=== PATIENT | male | born 1960 | race Caucasian/White ===

== ENCOUNTER 2025-03-13 09:28 | Emergency (ER) | payer MEDICAID ==
[~2025-03-13] VITALS: Ht 167.6 cm; Wt 116.2 kg
[2025-03-13] MEDS ORDERED: iohexol 350MG/ML 100ml bottle IV ONE (09:42)
--- NOTE | 2025-03-13 10:04 | ELECTROCARDIOGRAPH REPORT ---
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 Per Romano Measurements Intervals Leona Rate: 80 P: 44 GA: 199 QRS: 108 QRSD: 100 T: 37 QT: 360 QTc: 416 Interpretive Statements Sinus rhythm Right axis deviation Minimal ST elevation, lateral leads Electronically Signed On 03-13-2025 20:38:[address] Per Romano Please click the below link to view image of tracing.
--- NOTE | 2025-03-13 10:09 | RADIOLOGY REPORT ---
EXAM: CT CT STROKE ALERT INDICATION: Stroke Alert TECHNIQUE: CT of the head without intravenous contrast. Radiation Dose : 1. Head: CT Dose: CTDI volume is 65 mGy. Dose-length product is 12 70 mGy*cm The dose indicators for CT are the volume Computed Tomography (CT) Dose Index (CTDIvol) and the Dose Length Product (DLP), and are measured in units of mGy and mGy-cm, respectively. These indicators are not patient dose, but values generated from the CT scanner acquisition factors. The report includes radiation exposure data for exposures received during this examination. COMPARISON: None FINDINGS: There is no evidence of acute intracranial hemorrhage, extra-axial collection, mass effect, midline s hift, herniation or hydrocephalus. Punctate calcification in the right frontal lobe may represent a granuloma or sequelae of prior infec tion. The ventricles, sulci and cisterns are age appropriate. The lee-white differentiation is intact. Patchy periventricular and subcortical white matter hypoattenuation is nonspecific but may be related to small vessel ischemic disease. The visualized paranasal sinuses and mastoid air cells are clear. Moderate opacification of the right mastoid air cells. Mild opacification of the left mastoid air cells. IMPRESSION: No acute intracranial abnormality. Moderate opacification of the right mastoid air cells. Radiation optimization: All CT scans at this facility use at least one of these dose optimization mckinley hniques: automated exposure control mA and/or kV adjustment per patient size (includes targeted exam s where dose is matched to clinical indication) or iterative reconstruction.
[2025-03-13 10:17] LABS: EOSINOPHILS # (AUTO) 0.2 X10'3 (0-0.9); HEMOGLOBIN 13.9 g/dl (14.0-17.9)
[2025-03-13 10:19] LABS: BASOPHILS # (AUTO) 0.1 X10'3 (0-0.2); BASOPHILS % (AUTO) 1.7 % (0-1); EOSINOPHILS % (AUTO) 4.7 % (0-6); LYMPHOCYTES # (AUTO) 1.6 X10'3 (1.1-4.8); LYMPHOCYTES % (AUTO) 31.6 % (21-51); MEAN CORPUSCULAR HEMOGLOBIN 31.7 PG (27.0-31.0); MEAN CORPUSCULAR HGB CONC 33.9 g/dL (33.0-36.5); MEAN CORPUSCULAR VOLUME 93.5 FL (78-98); MEAN PLATELET VOLUME 6.5 FL (7.4-10.4); MONOCYTES # (AUTO) 0.7 X10'3 (0-0.9); MONOCYTES % (AUTO) 13.9 % (2-12); NEUTROPHILS # (AUTO) 2.4 X10'3 (1.8-7.7); NEUTROPHILS % (AUTO) 48.1 % (42-75); PLATELET COUNT 320 X10'3 (140-440); RED BLOOD COUNT 4.38 X10'6 (4.70-6.10)
--- NOTE | 2025-03-13 10:23 | RADIOLOGY REPORT ---
Procedure: CT CTA NECK/HEAD HISTORY: right eye vision loss Comparison Study: None. Exam Date:03/13/2025 09:56 AM TECHNIQUE: CTA head without and with intravenous contrast. CTA neck with intravenous contrast. 3D cresencio Jamn postprocessing was performed and images were used for interpretation and reporting. 100 cc of Omni paque 300 contrast was injected intravenously. All CT scans at this medical facility are performed using dose modulation techniques as appropriate t o a performed exam including the following: Automated exposure control was utilized; adjustment of th e MA and/or KV according to patient size; and use of iterative reconstruction technique. Radiation Dose : CT Dose: CTDI volume is 17 mGy. Dose-length product is 657 mGy*cm FINDINGS: CTA head: The intracranial internal carotid, anterior and middle cerebral arteries demonstrate normal caliber w ithout hemodynamically significant stenosis or occlusion. The right vertebral artery is dominant. There are atherosclerotic plaques in the proximal right V4 s egment with approximately 50% stenosis. The left vertebral artery is patent. The basilar, and poste rior cerebral arteries also demonstrate normal caliber without hemodynamically significant stenosis o r occlusion. There is no evidence of intracranial arterial aneurysm or arteriovenous malformation. The early parenchymal enhancement is grossly unremarkable. CTA neck: The visualized thoracic aortic arch and proximal great vessels are unremarkable. There are calcified atherosclerotic plaques in the bilateral carotid bulbs and proximal internal car otid arteries. There is less than 50% stenosis in the bilateral proximal ICAs. The bilateral common c arotid and external carotid arteries are patent without hemodynamically significant stenosis. The cervical segments of the right and left vertebral arteries are patent without flow-limiting steno sis or obvious dissection.. The right submandibular gland is not seen and may be surgically absent. Neck soft tissues otherwise a ppear within normal limits. Lung apices are clear. IMPRESSION: 1. Atherosclerotic plaques in the proximal right V4 vertebral artery with approximately 50% stenosis. The intracranial arteries otherwise appear patent without hemodynamically significant stenosis. 2. No hemodynamically significant stenosis in the cervical segments of the carotid and vertebral payton jose. HS:Y
[2025-03-13 10:28] VITALS: TEMP 97.8
[2025-03-13 10:28] LABS: ALBUMIN 3.3 G/DL (3.4-5.0); ANION GAP 6 (8-16); BLOOD UREA NITROGEN 16 MG/DL (7-18); BUN/CREATININE RATIO 17.4 (10.0-20.0); CALCIUM 8.2 MG/DL (8.5-10.1); CHLORIDE 101 MMOL/L (99-107); CREATININE 0.92 MG/DL (0.60-1.10); GLUCOSE 101 MG/DL (70-104); POTASSIUM 3.9 MMOL/L (3.5-5.1); SODIUM 135 MMOL/L (135-145); TOTAL CARBON DIOXIDE 28.3 MMOL/L (24-32); eCRCL 73 ML/MIN; eGFR 83 ML/MIN
[2025-03-13 10:33] LABS: APTT 28 SECONDS (22-32); INR 1.1 INR; PROTHROMBIN TIME 11.4 SECONDS (9.0-12.0)
--- NOTE | 2025-03-13 10:34 | RADIOLOGY REPORT ---
EXAM: DI CHEST,SINGLE VIEW Indication: Stroke Alert Technique: Single frontal view of the chest was obtained Comparison: None FINDINGS: Lines and Tubes: None Lungs: No focal consolidation. Pleura: No effusion. No pneumothorax. Cardiomediastinal contours: Cardiomegaly. Bones: No acute osseous abnormality. IMPRESSION: No acute cardiopulmonary disease.
[2025-03-13 10:43] LABS: PLATELET ESTIMATE NORMAL; TOTAL CELLS COUNTED 100
--- NOTE | 2025-03-13 10:44 | Physician Documentation ---
History of Present Illness ~ Chief Complaint: Stroke Alert Stated Complaint: EYE MD REFERRAL POSS CLOT/STROKE Time Seen by MD: 10:21 HPI 64-year-old male who presents with right eye partial vision loss that started yesterday morning. Patient states that he woke up and noticed that he could not see as clearly out of his right eye. 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 Patient states that he otherwise feels fine. Denies any speech impediments, weakness, numbness, tingling, headache or any other associated symptoms. Medication Reconciliation Allergies: Uncoded Allergies: NEOSPORIN (Allergy, Mild, 03/13/25) Scheduled Aspirin (Aspirin EC), 1 TAB PO DAILY Atorvastatin Calcium* (Lipitor*), 1 TAB PO DAILY Methylprednisolone (Medrol Dosepak), 0 PO UD Physical Exam Vital Signs: Temperature: 97.8, Source: Oral, Heart Rate: 76, Respiratory Rate: 16, BP: 114/81, Pulse Oximetry: 98, Weight: 116.200 Oxygen Flow Rate: 0 General Appearance I have reviewed the triage vitals. CONST: Well developed and well nourished. In no acute distress HENT: Head Atraumatic EYES: Pupils are equal, round and reactive to light. Normal conjunctiva NECK: Normal range of motion. Supple. CARDIO: Normal rate and regular rhythm. No murmurs, rubs, or gallops. S1, S2. PULM/CHEST: No respiratory distress. Lungs clear to auscultation. No wheeze ABD: Soft and nontender. Nondistended. Bowel sounds normal. No guarding. : Exam deferred MSK: No edema. No deformity. NEURO: Alert and oriented to person, place and time. Moving all extremities SKIN: Warm and dry. PSYCH: Normal mood and affect. Good eye contact. Progress Results/Orders Results/Orders Orders - KAYLA COLON MD Monitor (03/13/25 09:34) 2 Large Bore Ivs (03/13/25 09:34) Chest,Single View (03/13/25 09:34) Accucheck (03/13/25 09:34) Ct Stroke Alert (03/13/25 09:34) Cta Neck/Head (03/13/25 09:37) [facility] Prov.Neuro Consult (03/13/25 09:37) Completed Orders - KAYLA COLON MD Cbc/Diff (03/13/25 09:34) Electrocardiogram (03/13/25 09:34) Chest,Single View (03/13/25 09:34) Ct Stroke Alert (03/13/25 09:34) BMP (03/13/25 09:34) PTT (03/13/25 09:34) Pt Inr (03/13/25 09:34) Cta Neck/Head (03/13/25 09:37) Man Diff (03/13/25 10:09) Acetaminophen 1,000mg/100ml Iv (Ofirmev (03/13/25 14:00) Acetaminophen 1,000mg/100ml Iv (Ofirmev (03/13/25 12:54) ESR (03/13/25 15:18) C-Reactive Protein (03/13/25 10:09) Medications Received in ER Medications (Trade) Dose Ordered Sig/Betsy Route PRN Reason Start Time Stop Time Status Last Admin Dose Admin Acetaminophen 100 ml @ 400 mls/hr ONCE STAT IV 03/13/25 12:54 03/13/25 13:08 DC 03/13/25 12:58 400 MLS/HR Vital Signs 03/13/25 03/13/25 03/13/25 03/13/25 09:29 10:28 10:30 10:41 Temp 98.1 Pulse 82 76 79 Resp 16 16 13 B/P (MAP) 138/92 114/81 114/81 (92) Pulse Ox 96 98 97 O2 Flow Rate 0 0 03/13/25 03/13/25 03/13/25 03/13/25 10:45 11:00 11:15 11:45 Pulse 81 75 78 69 Resp 12 12 29 19 B/P (MAP) 118/93 (101) 122/93 (103) 120/84 (96) 126/84 (98) Pulse Ox 96 99 O2 Flow Rate 0 0 03/13/25 03/13/25 12:15 14:10 Pulse 70 68 Resp 23 15 B/P (MAP) 130/77 (94) 131/91 (104) Pulse Ox 98 O2 Flow Rate 0 Laboratory Tests Test 03/13/25 10:09 03/13/25 10:35 03/13/25 15:35 White Blood Count 5.0 Red Blood Count 4.38 L Hemoglobin 13.9 L Hematocrit 41.0 L Mean Corpuscular Volume 93.5 Mean Corpuscular Hemoglobin 31.7 H Mean Corpuscular Hemoglobin Concent 33.9 Red Cell Distribution Width 13.0 Platelet Count 320 Mean Platelet Volume 6.5 L Neutrophils (%) (Auto) 48.1 Lymphocytes (%) (Auto) 31.6 Monocytes (%) (Auto) 13.9 H Eosinophils (%) (Auto) 4.7 Basophils (%) (Auto) 1.7 H Neutrophils # (Auto) 2.4 Lymphocytes # (Auto) 1.6 Monocytes # (Auto) 0.7 Eosinophils # (Auto) 0.2 Basophils # (Auto) 0.1 CBC Comment Differential Total Cells Counted 100 Neutrophils % (Manual) 49.0 Lymphocytes % (Manual) 36.0 Monocytes % (Manual) 10.0 Eosinophils % (Manual) 5.0 Platelet Estimate Normal Red Blood Cell Morphology Normal Basophilic Stippling Prothrombin Time 11.4 INR International Normalized Ratio 1.1 Activated Partial Thromboplast Time 28 Coagulation Comments Sodium Level 135 Potassium Level 3.9 Chloride Level 101 Carbon Dioxide Level 28.3 Anion Gap 6 L Blood Urea Nitrogen 16 Creatinine 0.92 Estimated GFR/1.73 m2 83 BUN/Creatinine Ratio 17.4 Glucose Level 101 Calcium Level 8.2 L C-Reactive Protein 0.39 Albumin 3.3 L Chemistry Comments Glucometer 106 H Erythrocyte Sedimentation Rate 7 EKG/XRAY/CT/US/VASC/MRI CT : Impression EXAM: CT CT STROKE ALERT INDICATION: Stroke Alert TECHNIQUE: CT of the head without intravenous contrast. Radiation Dose : 1. Head: CT Dose: CTDI volume is 65 mGy. Dose-length product is 12 70 mGy*cm The dose indicators for CT are the volume Computed Tomography (CT) Dose Index (CTDIvol) and the Dose Length Product (DLP), and are measured in units of mGy and mGy-cm, respectively. These indicators are not patient dose, but values generated from the CT scanner acquisition factors. The report includes radiation exposure data for exposures received during this examination. COMPARISON: None FINDINGS: There is no evidence of acute intracranial hemorrhage, extra-axial collection, mass effect, midline shift, herniation or hydrocephalus. Punctate calcification in the right frontal lobe may represent a granuloma or sequelae of prior infection. The ventricles, sulci and cisterns are age appropriate. The lee-white differentiation is intact. Patchy periventricular and subcortical white matter hypoattenuation is nonspecific but may be related to small vessel ischemic disease. The visualized paranasal sinuses and mastoid air cells are clear. Moderate opacification of the right mastoid air cells. Mild opacification of the left mastoid air cells. IMPRESSION: No acute intracranial abnormality. Moderate opacification of the right mastoid air cells. Procedure: CT CTA NECK/HEAD HISTORY: right eye vision loss Comparison Study: None. Exam Date:03/13/2025 09:56 AM TECHNIQUE: CTA head without and with intravenous contrast. CTA neck with intravenous contrast. 3D image postprocessing was performed and images were used for interpretation and reporting. 100 cc of Omnipaque 300 contrast was injected intravenously. All CT scans at this medical facility are performed using dose modulation techniques as appropriate to a performed exam including the following: Automated exposure control was utilized; adjustment of the MA and/or KV according to patient size; and use of iterative reconstruction technique. Radiation Dose : CT Dose: CTDI volume is 17 mGy. Dose-length product is 657 mGy*cm FINDINGS: CTA head: The intracranial internal carotid, anterior and middle cerebral arteries demonstrate normal caliber without hemodynamically significant stenosis or occlusion. The right vertebral artery is dominant. There are atherosclerotic plaques in the proximal right V4 segment with approximately 50% stenosis. The left vertebral artery is patent. The basilar, and posterior cerebral arteries also demonstrate normal caliber without hemodynamically significant stenosis or occlusion. There is no evidence of intracranial arterial aneurysm or arteriovenous malformation. The early parenchymal enhancement is grossly unremarkable. CTA neck: The visualized thoracic aortic arch and proximal great vessels are unremarkable. There are calcified atherosclerotic plaques in the bilateral carotid bulbs and proximal internal carotid arteries. There is less than 50% stenosis in the bilateral proximal ICAs. The bilateral common carotid and external carotid arteries are patent without hemodynamically significant stenosis. The cervical segments of the right and left vertebral arteries are patent without flow-limiting stenosis or obvious dissection.. The right submandibular gland is not seen and may be surgically absent. Neck soft tissues otherwise appear within normal limits. Lung apices are clear. IMPRESSION: 1. Atherosclerotic plaques in the proximal right V4 vertebral artery with approximately 50% stenosis. The intracranial arteries otherwise appear patent without hemodynamically significant stenosis. 2. No hemodynamically significant stenosis in the cervical segments of the carotid and vertebral arteries. HS:Y Medical Decision Making Additional Information 64-year-old male presenting for right eye partial vision loss that began yesterday. Differential diagnosis includes but not limited to retinal artery occlusion versus retinal detachment versus temporal arteritis versus optic neuritis versus glaucoma amongst many other etiologies. On examination his eyes indicated bilateral pupillary dilatation which was secondary to the medication that he was given at the [facility]. Aside from this gross exam of the eyes were normal. I did perform ocular pressure testing bilaterally and both were normal. Fluorescein stain eye showed no signs of any corneal abrasions. The patient endorsed no eye pain pain as well as no headache, he denied any floaters. We did do a visual acuity which showed 2024 vision in the right eye as well as 2025 in the left. Peeling endorsed slight tunnel vision in the right eye. There was some concern for a CVA and thus a stroke workup was performed as well including a CT and a CT angiogram of the head and neck. CTA did indicate a 50% narrowing of the right vertebral artery but was otherwise unremarkable. Noncontrast CT was unremarkable as well. Patient's lab workup was also unremarkable. His partial vision loss began yesterday and at this point no emergent intervention is indicated. I spoke with Dr. Issa Rodriguez of [facility] who recommended that we have the patient follow up in his clinic tomorrow afternoon. The patient's name was given to him and the phone number of the clinic was given to the patient. I instructed him that he needs to follow up closely tomorrow in the ophthalmology clinic. Given that he has some narrowing in his vertebral artery which I believe is unrelated to this however I will go ahead and start him on aspirin 81 mg daily as well as a statin medication. I explained to him that this will be beneficial to help prevent any infarcts in the future. Patient will follow up tomorrow in the ophthalmology clinic. I advised him to go directly to the ED should his symptoms worsen. Departure Disposition: HOME / SELF CARE / HOMELESS Impression: Primary Impression: Vision loss of right eye Additional Impression: Vertebral artery stenosis Additional Instructions: Follow up closely with Dr. Stevenson tomorrow in the ophthalmology clinic. His number is [phone]. Please give his clinic a call in the morning and they will schedule you for tomorrow afternoon. The address of the clinic is [address], [place]. I also prescribed you some medications-aspirin and atorvastatin. Please pick these up from [facility] and start taking them. I recommend following up with your primary care physician as well within the next 1-2 weeks. Should your symptoms suddenly worsen over the next 24 hours go directly to the [facility] Emergency Department. Referrals: NO PRIMARY CARE PROVIDER (PCP) Prescriptions Atorvastatin Calcium* (Lipitor*) 20 Mg Tablet 1 TAB PO DAILY for 30 Days, #30 TAB Prov: KAYLA COLON MD 03/13/25 Aspirin (Aspirin EC) 81 Mg Tablet. 1 TAB PO DAILY for 90 Days, #90 TAB Prov: KAYLA COLON MD 03/13/25 Comments Follow up closely with Dr. Stevenson tomorrow in the ophthalmology clinic. His number is [phone]. Please give his clinic a call in the morning and they will schedule you for tomorrow afternoon. The address of the clinic is [address], [place]. I also prescribed you some medications-aspirin and atorvastatin. Please pick these up from [facility] and start taking them. I recommend following up with your primary care physician as well within the next 1-2 weeks. Should your symptoms suddenly worsen over the next 24 hours go directly to the [facility] Emergency Department. KAYLA COLON MD March 13, 2025 10:44
[2025-03-13] MEDS: acetaminophen 1,000mg/100ml IV 100 ML IV STA (12:58)
[2025-03-13] MEDS ORDERED: acetaminophen 1,000mg/100ml IV 100 ML IV SCH (14:00)
[2025-03-13 15:34] LABS: C-REACTIVE PROTEIN 0.39 MG/DL (0.0-0.5)
[2025-03-13] MEDS ORDERED: ATOR20TA PO (16:49)
[2025-03-13] MEDS ORDERED: METH4TAB81 PO (16:49)
[2025-03-13] MEDS ORDERED: ASPI81TA52 PO (16:49)
[2025-03-13 17:34] VITALS: BP 126/69; PULSE 77; RESP 16; O2SAT 98
== END 2025-03-13 17:36 | disposition home or self-care (01) ==
LOC: ER 09:29
DX: H54.7 Unspecified visual loss (principal); I65.01 Occlusion and stenosis of right vertebral artery; Z79.82 Long term (current) use of aspirin; Z79.899 Other long term (current) drug therapy
CPT/HCPCS: 36415; 70450; 70496; 70498; 71045; 80048; 82948; 85007; 85025; 85610; 85651; 85730; 86140; 93005; 96365; 99285; J0131; Q9967

== ENCOUNTER 2025-11-04 13:46 | Outpatient (CLI) | payer MEDICAID ==
[~2025-11-04 13:46] MED LIST: iohexol 300mg/ml 100ml inj. ONE
[2025-11-04] MEDS ORDERED: iohexol 300mg/ml 100ml inj. ONE (14:38)
--- NOTE | 2025-11-04 19:06 | RADIOLOGY REPORT ---
CLINICAL HISTORY: LOCALIZED SWELLING, MASS AND LUMP, UNSPECIFIED UPPER LIMB TECHNIQUE: CT of the chest was performed with intravenous contrast. 100 mL of Omnipaque 300 was administered intravenously. This exam was performed according to our departmental dose optimization program. Up-to-date CT equipment and radiation dose reduction techniques are utilized as appropriate. CTDI 19 DLP 711 COMPARISON: DI CHEST,SINGLE VIEW on DOS: 03/13/25 FINDINGS: Chest: The thoracic aorta is normal in course and caliber. There are minimal aortic atherosclerotic calcifications. The heart is normal in size. No pericardial effusion is seen. There are extensive 3-vessel coronary artery calcifications. No enlarged mediastinal, hilar, or axillary lymph node is present. The central airways are patent. There is no bronchiectasis. There is no suspicious pulmonary nodule or area of consolidation. There is mild subpleural linear scarring and/or atelectasis at both lung bases. There is no pleural effusion present. No mass lesion is seen. Specifically, no concerning left axillary lymph node is evident. Other: The visualized upper abdomen demonstrates diffuse hepatic steatosis. No acute osseous abnormality is identified. There is dextroconvex curvature of the thoracic spine. IMPRESSION: No acute CT abnormality of the chest. Extensive 3-vessel coronary artery calcifications. Diffuse hepatic steatosis.
== END 2025-11-04 23:59 | disposition home or self-care (01) ==
LOC: RAD 13:46
PROVIDERS: ATTEND Family Medicine
DX: K76.0 Fatty (change of) liver, not elsewhere classified (principal); R22.30 Localized swelling, mass and lump, unspecified upper limb; I25.10 Atherosclerotic heart disease of native coronary artery without angina pectoris; M43.8X4 Other specified deforming dorsopathies, thoracic region
CPT/HCPCS: 71260; Q9967